=== PATIENT | male | born 1955 | race Caucasian/White ===

== ENCOUNTER → 2016-04-14 | Outpatient (CLI) | payer BC ==
[~2016-04-14] VITALS: Ht 185.4 cm; Wt 77.3 kg
[~2016-04-14] MED LIST: ASPIRIN 32325 MG/TAB PO; CIALIS20 MG PO; LETAIRIS10 MG PO; MOTRIN 400400 MG/TAB PO; NORVASC 5MG5 MG/TAB PO; REVATIO20 MG PO; TOPCARE ASPIRIN81 M1 PO; VICODIN 5/5001 UDTAB PO; ZOFRAN4 M1 PO
[2016-04-14 12:58] VITALS: BP 127/84; PULSE 57
[2016-04-14 14:15] VITALS: BP 140/89; PULSE 54
== END ==
LOC: COL.RAD 12:34
DX: M54.42 Lumbago with sciatica, left side (principal); G89.29 Other chronic pain
CPT/HCPCS: J3301

== ENCOUNTER 2017-05-29 07:08 | Day surgery (SDC) | payer BC ==
[~2017-05-29] VITALS: Ht 185.4 cm; Wt 75.5 kg
[2017-05-29] VITALS (7 sets, daily range): BP systolic 107–126; BP diastolic 62–80; PULSE 65–80; TEMP 97.3–97.4
[2017-05-29] MEDS ORDERED: NORCO 325 MG-7.1 TAB PO (13:37)
== END 2017-05-29 15:40 | disposition home or self-care (01) ==
LOC: SDCO 07:08
DX: S46.312A Strain of muscle, fascia and tendon of triceps, left arm, initial encounter (principal); X50.0XXA Overexertion from strenuous movement or load, initial encounter; Y93.23 Activity, snow (alpine) (downhill) skiing, snowboarding, sledding, tobogganing and snow tubing; I10 Essential (primary) hypertension; M19.90 Unspecified osteoarthritis, unspecified site; Z80.42 Family history of malignant neoplasm of prostate
CPT/HCPCS: C1713; J0690; J1100; J1885; J2250; J2405; J2704; J3010; J7120

== ENCOUNTER → 2017-08-28 | Outpatient (CLI) | payer BC ==
[~2017-08-28] VITALS: Ht 185.4 cm; Wt 75.0 kg
[~2017-08-28] MED LIST changes: +NORCO 325 MG-7.1 TAB PO
[2017-08-28 13:41] VITALS: BP 116/87; PULSE 71
[2017-08-28 14:47] VITALS: BP 124/85; PULSE 70
== END ==
LOC: COL.RAD 13:22
DX: M54.42 Lumbago with sciatica, left side (principal); G89.29 Other chronic pain
CPT/HCPCS: J3301

== ENCOUNTER 2017-09-04 07:06 | Day surgery (SDC) | payer BC ==
[~2017-09-04] VITALS: Ht 185.4 cm; Wt 73.2 kg
[2017-09-04 07:24] VITALS: BP 133/93; PULSE 78; TEMP 98.5
[2017-09-04 09:05] VITALS: BP 129/98; PULSE 77; TEMP 98.4
[2017-09-04 09:20] VITALS: BP 108/86; PULSE 74
== END 2017-09-04 09:23 | disposition home or self-care (01) ==
LOC: SDCO 07:06
DX: Z12.11 Encounter for screening for malignant neoplasm of colon (principal); Z86.010 Personal history of colon polyps; D12.2 Benign neoplasm of ascending colon; D12.3 Benign neoplasm of transverse colon; D12.4 Benign neoplasm of descending colon; K63.5 Polyp of colon; K64.0 First degree hemorrhoids; I27.20 Pulmonary hypertension, unspecified; Z79.899 Other long term (current) drug therapy
CPT/HCPCS: OP; J7030

== ENCOUNTER → 2018-01-21 | Outpatient (CLI) | payer BC ==
[~2018-01-21] VITALS: Ht 185.4 cm; Wt 77.0 kg
[~2018-01-21] MED LIST changes: +TYVASO0.6 MG/ML IH
[2018-01-21 06:58] VITALS: BP 125/98; PULSE 65
[2018-01-21 08:28] VITALS: BP 130/81; PULSE 73
== END ==
LOC: COL.RAD 06:22
DX: M54.42 Lumbago with sciatica, left side (principal); G89.29 Other chronic pain
CPT/HCPCS: J3301

== ENCOUNTER → 2018-10-31 | Outpatient (CLI) | payer BC ==
[~2018-10-31] VITALS: Ht 185.4 cm; Wt 74.4 kg
[~2018-10-31] MED LIST changes: +[UNRECOGNIZED DRUG - OTHER] INH
[2018-10-31 06:55] VITALS: BP 124/86; PULSE 63
[2018-10-31 07:36] VITALS: BP 123/84; PULSE 64
--- NOTE | 2018-10-31 07:50 | NUR ---
PT LEAVES AMBULATORY TO POV. SITE IS [facility]. PT DRIVES HIMSELF BECAUSE HE DOES NOT GET MARCAINE INJECTIONS.
== END ==
LOC: COL.RAD 06:38
DX: M54.42 Lumbago with sciatica, left side (principal)
CPT/HCPCS: J3301

== ENCOUNTER → 2019-07-09 | Outpatient (CLI) | payer BC ==
[~2019-07-09] VITALS: Ht 185.4 cm; Wt 76.8 kg
[2019-07-09 07:16] VITALS: BP 131/86; PULSE 66
[2019-07-09 07:54] VITALS: BP 131/84; PULSE 67
--- NOTE | 2019-07-09 08:06 | NUR ---
PT WAS TAKEN TO WAITING POV
== END ==
LOC: COL.RAD 06:44
DX: M54.42 Lumbago with sciatica, left side (principal); G89.29 Other chronic pain
CPT/HCPCS: J3301

== ENCOUNTER → 2020-10-26 | Outpatient (CLI) | payer BC ==
[~2020-10-26] VITALS: Ht 185.4 cm; Wt 76.0 kg
[2020-10-26 09:33] VITALS: BP 135/76; PULSE 64; TEMP 98.5
[2020-10-26 10:20] VITALS: BP 131/76; PULSE 77
== END ==
LOC: COL.RAD 08:55
DX: M54.42 Lumbago with sciatica, left side (principal); G89.29 Other chronic pain
CPT/HCPCS: J3301

== ENCOUNTER 2021-03-22 06:56 | Day surgery (SDC) | payer BC ==
[~2021-03-22] VITALS: Ht 185.4 cm; Wt 72.8 kg
[2021-03-22 07:42] VITALS: BP 114/86; PULSE 65; TEMP 97.9
[2021-03-22 08:55] VITALS: BP 124/84; PULSE 65; TEMP 97.6
--- NOTE | 2021-03-22 08:55 | NUR ---
PATIENT TRANSPORTED PER CART FROM GI SUITE TO BAY 2 ACCOMPANIED BY ENDO RN. PATIENT TALKS WITH STAFF. PATIENT DID NOT RECEIVE SEDATION. PATIENT IS ALERT AND ORIENTED. PER DR KIRKLAND PATIENT MAY GO HOME. VSS ON ROOM AIR. PATIENT GIVEN COFFEE TO DRINK.
[2021-03-22 09:00] VITALS: BP 120/66; PULSE 60
--- NOTE | 2021-03-22 09:05 | NUR ---
VSS ON ROOM AIR. PATIENT STATES READY GO TO HOME. PATIENT DRINKS COFFEE WITHOUT PROBLEMS. PATIENT DECLINES FOOD. 909 IV DC'D WITH CATHETER TIP INTACT. PRESSURE AND BANDAGE APPLIED. 911 DISCHARGE INSTRUCTIONS GIVEN VERBAL AND DISCHARGE PACKET GIVEN TO PATIENT. QUESTIONS ANSERED AND PATIENT VOICED UNDERSTANDING. PATIENT CHANGES INTO STREET CLOTHES. 917 PATIENT DISMISSED WALKING ACCOMPANIED BY ENDO RN TO PERSONAL VECHILE. PATIENT ABLE TO DRIVE SELF.
[2021-03-22 11:29] VITALS: BP 127/84; PULSE 68
== END 2021-03-22 09:18 | disposition home or self-care (01) ==
LOC: SDCO 06:56
DX: Z12.11 Encounter for screening for malignant neoplasm of colon (principal); D12.3 Benign neoplasm of transverse colon; K64.0 First degree hemorrhoids; M19.90 Unspecified osteoarthritis, unspecified site; I27.20 Pulmonary hypertension, unspecified; Z90.89 Acquired absence of other organs
CPT/HCPCS: J7030

== ENCOUNTER 2021-07-11 13:36 | Emergency (ER) | payer BC ==
[~2021-07-11] VITALS: Ht 182.9 cm; Wt 72.7 kg
[2021-07-11 13:46] VITALS: BP 109/68; TEMP 98.4
[2021-07-11] MEDS ORDERED: CEPHALEXIN500 M1 PO (14:31)
[2021-07-11 14:36] VITALS: PULSE 75
== END 2021-07-11 14:33 | disposition home or self-care (01) ==
LOC: COL.ER 13:36
DX: S61.411A Laceration without foreign body of right hand, initial encounter (principal); W25.XXXA Contact with sharp glass, initial encounter